=== PATIENT | male | born 1960 | race African-American/Black ===

== ENCOUNTER 2016-06-26 22:25 | Inpatient (IN) | payer OTHER ==
[~2016-06-26] VITALS: Ht 185.4 cm; Wt 96.3 kg
[2016-06-27 00:43] LABS: BASOPHIL % 0.5 % (0-2); PLATELET COUNT 250 x10^3mcL (130-400)
[2016-06-27 00:44] LABS: RED CELL DISTRIBUTION WIDTH 15.6 % (11.5-14.5)
[2016-06-27 00:52] LABS: CALCIUM 8.8 mg/dL (8.5-10.1); CARBON DIOXIDE 31.5 mmol/L (21-32); CHLORIDE SERUM 104 mmol/L (98-107); CREATININE SERUM 1.1 mg/dL (0.7-1.3); GFR1 > 60 mL/min; GLUCOSE SERUM 110 mg/dL (74-106); POTASSIUM SERUM 4.2 mmol/L (3.5-5.1); SODIUM SERUM 140 mmol/L (136-145)
[2016-06-27 00:56] LABS: ALBUMIN 3.7 g/dL (3.4-5.0); ALKALINE PHOSPHATASE 26 U/L (46-116); ALT/SGPT 24 U/L (16-63); AST/SGOT 19 U/L (15-37); BILIRUBIN TOTAL 0.7 mg/dL (0.20-1.00); TOTAL PROTEIN, SERUM 7.2 g/dL (6.4-8.2)
[2016-06-27] MEDS ORDERED: LISINOPRIL2.5 MG PO (02:09)
[2016-06-27 03:09] LABS: CHOLESTEROL/HDL RATIO 3.2; MAGNESIUM 2.2 mg/dL (1.8-2.4); PHOSPHOROUS 4.8 mg/dL (2.5-4.9)
[2016-06-27 03:19] LABS: FREE T4 0.97 ng/dL (0.76-1.46); FREE THYROXINE INDEX 2.5 ug/dL (1.4-4.5); T4(THYROXINE) 6.9 ug/dL (4.7-13.3)
[2016-06-27 03:54] VITALS: BP 165/94
[2016-06-27 05:02] LABS: T3 TOTAL 1.01 ng/mL
[2016-06-27 06:05] VITALS: BP 171/94
[2016-06-27 08:40] VITALS: BP 131/85
[2016-06-27] MEDS ORDERED: CHLORTHALIDONE25 MG PO (09:07)
[2016-06-27] MEDS ORDERED: SPIRONOLACTONE100 MG PO (09:08)
[2016-06-27] MEDS ORDERED: CARVEDILOL25 M1 PO (09:09)
[2016-06-27 09:39] LABS: microscopic required? NO
[2016-06-27 10:25] LABS: UA SPECIFIC GRAVITY 1.025 (1.005-1.035); urine erythrocyte NEGATIVE (NEGATIVE)
[2016-06-27 10:57] LABS: AMPHETAMINE QUAL UR NONE DETECTED (NEG <=1000)
[2016-06-27 13:39] VITALS: BP 148/89
[2016-06-27 17:16] VITALS: BP 145/79
[2016-06-27 20:19] VITALS: BP 150/87
[2016-06-28 05:26] VITALS: BP 140/87
[2016-06-28 06:19] LABS: BASOPHIL % 0.6 % (0-2); PLATELET COUNT 229 x10^3mcL (130-400)
[2016-06-28 06:25] LABS: RED CELL DISTRIBUTION WIDTH 15.2 % (11.5-14.5)
[2016-06-28 06:46] LABS: CALCIUM 8.7 mg/dL (8.5-10.1); CARBON DIOXIDE 31.7 mmol/L (21-32); CHLORIDE SERUM 106 mmol/L (98-107); CREATININE SERUM 1.3 mg/dL (0.7-1.3); GFR1 > 60 mL/min; GLUCOSE SERUM 107 mg/dL (74-106); POTASSIUM SERUM 3.8 mmol/L (3.5-5.1); SODIUM SERUM 141 mmol/L (136-145)
[2016-06-28 07:04] LABS: ALBUMIN 3.2 g/dL (3.4-5.0)
[2016-06-28] MEDS ORDERED: ECO81 PO (10:26)
[2016-06-28] MEDS ORDERED: LIPI20 PO (10:26)
[2016-06-28] MEDS ORDERED: PRI20 PO (10:27)
[2016-06-28 11:17] VITALS: BP 144/83
== END 2016-06-28 12:03 | disposition home or self-care (01) | DRG 243 ==
LOC: ED 22:25 → DU 06-27 02:09 → MU 06-27 02:09 → DU 06-27 02:30 → MU 06-27 18:47
PROVIDERS: Emergency Medicine; Family Medicine; ADMIT Family Medicine
DX: K21.9 Gastro-esophageal reflux disease without esophagitis (principal); I50.43 Acute on chronic combined systolic (congestive) and diastolic (congestive) heart failure; E44.0 Moderate protein-calorie malnutrition; I16.0 Hypertensive urgency; E78.5 Hyperlipidemia, unspecified; I11.0 Hypertensive heart disease with heart failure; Z82.49 Family history of ischemic heart disease and other diseases of the circulatory system; Z91.14 Patient's other noncompliance with medication regimen
CPT/HCPCS: 80307; 83880; 84439; G0480; J0360; J1885; J3490; J7030; Q0092

== ENCOUNTER 2016-11-22 23:40 | Emergency (ER) | payer OTHER ==
[~2016-11-22 23:40] MED LIST: CARVEDILOL25 M1 PO; CHLORTHALIDONE25 MG PO; ECO81 PO; LIPI20 PO; LISINOPRIL2.5 MG PO; PRI20 PO; SPIRONOLACTONE100 MG PO
[2016-11-23 04:48] VITALS: BP 126/54
== END 2016-11-23 04:48 | disposition home or self-care (01) ==
LOC: ED 23:40
DX: S70.01XA Contusion of right hip, initial encounter (principal); I11.0 Hypertensive heart disease with heart failure; I50.9 Heart failure, unspecified; V03.00XA Pedestrian on foot injured in collision with car, pick-up truck or van in nontraffic accident, initial encounter; Y93.01 Activity, walking, marching and hiking; Y99.8 Other external cause status; Y92.481 Parking lot as the place of occurrence of the external cause
CPT/HCPCS: J1885; Q9967